=== PATIENT | female | born 2000 | race Caucasian/White ===

== ENCOUNTER 2020-04-07 18:27 | Emergency (ER) | payer OTHER, SELFPAY ==
[~2020-04-07] VITALS: Ht 157.5 cm; Wt 61.2 kg
[2020-04-07 18:30] VITALS: Ht 157.5 cm; Wt 61.2 kg
[2020-04-07 19:25] VITALS: BP 99/67
== END 2020-04-07 19:25 | disposition home or self-care (01) ==
LOC: ED 18:27
DX: B34.9 Viral infection, unspecified (principal); Z20.828 Contact with and (suspected) exposure to other viral communicable diseases
CPT/HCPCS: U0003-CS